=== PATIENT | female | born 1970 | race Caucasian/White ===

== ENCOUNTER 2025-02-22 19:44 | Inpatient (IN) | payer BC ==
[~2025-02-22] VITALS: Ht 162.6 cm; Wt 76.6 kg
[2025-02-22 20:15] VITALS: BP 145/73; PULSE 76; RESP 18; TEMP 97.5; O2SAT 98
[2025-02-22] MEDS ORDERED: loperamide 2mg capsule PO PRN (20:25)
[2025-02-22] MEDS ORDERED: magnesium hydroxide 30ml (MOM) UD suspension PO PRN (20:25)
[2025-02-23] MEDS: haloperidol lactate 5mg/ml inj IM ONE (00:38)
[2025-02-23 07:00] VITALS: RESP 12; O2SAT 95
--- NOTE | 2025-02-23 08:06 | HISTORY AND PHYSICAL ---
History & Physical Providers to CC ~ chief complaint, depression, insomnia, History of Present Illness Reason for Admit\Complaint: As above History of Present Illness This 54-year old (Primary language = Hebrew) Female relatively in good health, except history of hypertension, marijuana use, GERD on medication, bronchial asthma on Singulair, history of hysterectomy, history of left ovarian cyst, insomnia on medication, history of depression, psychiatric disorder, psychotic disorder, presented to the hospital with chief complaint depression insomnia; in addition patient wasadmitted this shift (at 2012) on a 5150 forDTS, [facility]TOfrom [facility] via w[facility]c, accompanied per [facility] staff and security personnel. Per 5150, Pt was demonstrating psychotic features including sikhism delusional thinking, flight of ideas and loose associations. She was making statements about needing to be burned at the stake and vague statements concerning child sacrifice and was unable to articulate a viable plan for safety. No additional complaint or concern. Allergies: Coded Allergies: No Known Allergies (Unverified , 02/22/25) Active prescriptions I reviewed reconciled Home Medications Pending Past Medical History Past Medical History As in HPI Past Surgical History Surgical History Comment As in HPI Past Social History Social History Comment Drug abuse tobacco alcohol use except use of marijuana family good social support Health Maintenance Health Maintenance Noncontributory ROS ROS Constitutional : no fever , no chills, or weakness. No diaphoresis. Allergic/Immunologic, no lymphadenopathy, no hives, no skin eruptions. Eyes, no recent visual changes, no eye pain, no photophobia. Ears, nose, mouth, throat, no sore throat, no nosebleed, no ear pain. Cardiovascular, no palpitations, skipped beats, chest pain, no peripheral edema, Respiratory, no dyspnea, orthopnea, cough, hemoptysis, chest wall pain. Gastrointestinal, no abdominal pain, nausea, vomiting, constipation or diarrhea. : no dysuria, hematuria, pelvic pain, urethral d/c. Endocrine, no polyuria, polydipsia, recent unintentional weight gain or loss. Hematologic/Lymphatic, no petechiae, no enlarged lymph nodes, no bone pain. Integumentary, no rash, no skin lesions, Musculoskeletal, no muscle aches, or pain, no muscle cramps, no recent change in gait Neurological, no dizziness, no headache, no syncope, no paresthesia. Psychiatric, depression, hallucination, delusions, insomnia ROS - in rest is as in HPI. Exam Vitals: Vital Signs Date Time Temp Pulse Resp B/P (MAP) Pulse Ox O2 Delivery O2 Flow Rate FiO2 02/23/25 00:38 16 02/22/25 20:15 97.5 76 145/73 (97) 98 Room Air Vital signs, stable ,afebrile. Pulse Oximetry reflects adequate oxygenation. BMI is 27, weight 73 kg General: well developed, well nourished. Awake , alert, and oriented x4, resting comfortably in the bed, in no acute distress . Skin: Warm, dry, no pallor, no rash or petechiae. HEENT: Atraumatic, normocephalic, EOMI, anicteric sclera B; pink conjunctiva; PERRLA, normal oropharynx, moist oral and nasal mucosa. Tympanic membrane , nose , throat clear. Neck: Trachea midline. Supple, full range of motion, no JVD, bruit , hepatojugular reflex , lymphadenopathy or masses, or other lesions Cardiac: Regular rhythm, regular rate no murmurs, rubs, or gallops. Normal S1 and S2, no S3 noticed. PMI is normal. Respiratory: Equal breath sounds bilaterally, no tachypnea; lungs clear to auscultation bilaterally, no wheezing ,rub or rales, or crackles. Chest wall is symmetric and without deformity. No signs of trauma. Chest wall is nontender. No signs of respiratory distress. Resonance is normal upon percussion bilaterally. Gastrointestinal: Abdomen symmetric, non-distended, soft, non-tender, normal bowel sounds x4 quadrant, normoactive, no hepatosplenomegaly , no masses , no bruit, no flank pain bilaterally. No voluntary guarding, rebound, or rigidity. No tenderness to percussion. No pulsatile masses. Equal femoral pulses. No Sanchez's sign or McBurney point tenderness. Back; no CVA tenderness bilaterally, no deformities. Neck and back are without deformity as well. No tenderness noted on palpation of the spinous processes. Spinous processes are midline. Cervical, thoracic, and lumbar paraspinal muscles are not tender and are without spasm. : Noncontributory Musculoskeletal: Extremities, normal range of motion, non-tender, muscle strength 5/5 x 4. Negative Homans signs bilaterally on lower extremity. Distal pulses full symmetrical, no clubbing, cyanosis , edema. Neurological: Speech is clear, alert, and oriented x 4. No motor or sensory deficit, deep tendon reflexes normal, cerebellar intact. Cranial nerves II-XII intact. Psych: Alert and or appropriate, normal affect. Vascular: Good distal pulses, which are equal x4; capillary refill less than 2 seconds. Lymphatic, no lymphadenopathy. Advance Care Planning Advanced Care plannin - 30 Minutes Additional Plan Assessment/plan Psychotic disorder, depression, insomnia, treatment per Psychiatric team Hypertension, fair control Marijuana user, consulted not to use marijuana patient agrees GERD, on medications stable History of bronchial asthma on Singulair, stable Additional comorbidities, history of left ovarian cyst, hysterectomy Hospitalist team we will follow the patient per hospital protocol Sepsis Screening Reassessment Date: Feb 23, 2025 Date of Service: Feb 23, 2025 Billing Provider: JUDSON JUAREZ MD Common Visit Codes: [id number] INP/OBS CARE(MOD) JUDSON JUAREZ MD Feb 23, 2025 08:06
[2025-02-23 13:14] LABS: CHOL/HDL RATIO 2.6 (0.00-4.99); LDL CHOLESTEROL 77 MG/DL (50-100)
[2025-02-23] MEDS ORDERED: ESTR1PAT93 TD (13:31)
[2025-02-23] MEDS ORDERED: SERT-434 PO (13:31)
[2025-02-23] MEDS ORDERED: MONT-40 PO (13:31)
[2025-02-23] MEDS ORDERED: ATOR40TA72 PO (13:31)
[2025-02-23] MEDS ORDERED: estradiol 0.1mg patch.TDWK TD SCH (14:30)
[2025-02-23 19:00] VITALS: RESP 16
[2025-02-23] MEDS: divalproex 250mg tablet, delayed-release PO SCH (21:03)
--- NOTE | 2025-02-23 22:02 | HISTORY AND PHYSICAL ---
History of Present Illness Admission Diagnosis: Psychosis, MDD History of Present Illness This 54-year old female presented to the ED with danger to self and danger to others after presenting with acute psychotic symptoms. On admission to the floor, she has continued demonstrating psychotic features including rel igious delusional thinking, flight of ideas and loose associations. She was making statements about needing to be burned at the stake and vague statements concerning child sacrifice and was unable to articulate a viable plan for safety. Allergies: Coded Allergies: No Known Allergies (Unverified , 02/22/25) Past Social History Smoking: Non-Smoker Alcohol Use: Rarely Drug Use: Marijuana Lives with: Alone Lives In: Home Occupation: retired Domestic Violence: Neg Personal History Uses Alcohol: Yes ETOH - How Much and Last Used: rarely Uses Recreational Drugs: No Heroin and/or Methadone: No Alcohol Use: Yes Cocaine: No Inhalents: No Amphetamines: No Marijuana Use: Yes Sedatives: No Tranquilizers: No Tobacco Use: No Caffeine Use: Yes Other Substance: No Current Living Situation: House/APT Does Patient Plan to Continue: Yes Patient Lives With: Alone Marital Status: Single Duration: Chcf: Yes Do you Work: No Do You Want to Work?: No Latter-Day Importance to Patient: High Legal Status: Voluntary (5150) Name and Number of Conservator: N/a Mental Status Exam OBSERVATION Appearnace: Disheveled Speech: Tangential, Pressured, Other (screaming,) Eye Contact: Intense Motor Activity: Restless Affect: Labile MOOD Mood: Anxious, Angry, Depressed, Irritable COGNITION Orientation Impairment: None Memory Impairment: None Attention: Normal PERCEPTION Hallucinations: Auditory Other: None THOUGHTS Suicidality: Ideation Homicidality: Aggressive Delusions: Grandiose, Paraniod, Evangelical BEHAVIOR Behavior: Hyperactive, Agitated, Aggressive, Bizarre INSIGHT Insight: Poor Judgment: Poor Assessment/Plan Problems/Diagnosis: (1) Suicidal behavior (2) Psychosis (3) Depression Additional Plan Need for hospitalization: DTS/DTO, unable to contract for safety DX: SI Psychosis Depression Assessment: On assessment, patient brought up by security to unit. Patient was seen screaming and threatening staff requiring an IM medication intervention shortly after being admitted. Patient continues to make anabaptist references and displaying paranoid, delusional thinking. Medications Cont. Sertraline *Added Zyprexa 5mg *Added Depakote 250mg BID Plan: -Continue legal hold - Maintain close obs -Reassess DTS/DTO Length of stay 3-7 days Dispo: Likely home CODING VISIT-PSYCHIATRY Date of Service: Feb 23, 2025 Billing Provider: MIKIE GARCIA NP Psych Common Visit Codes: [id number] INP/OBS CARE (Mod) IMKIE GARCIA NP Feb 23, 2025 22:02
[2025-02-24 07:00] VITALS: RESP 16; O2SAT 97
[2025-02-24] MEDS: OLANZAPINE 5 MG TABLET PO SCH (08:00)
[2025-02-24 20:00] VITALS: BP 121/54; PULSE 66; RESP 16; TEMP 97.1; O2SAT 97
[2025-02-25 07:00] VITALS: BP 102/60; PULSE 63; RESP 16; TEMP 97.5; O2SAT 97
[2025-02-25 13:30] LABS: MEAN PLATELET VOLUME 9.2 FL (7.4-10.4); RED CELL DISTRIBUTION WIDTH 14.3 % (11.5-14.5)
[2025-02-25 13:54] LABS: CREATININE 0.91 MG/DL (0.40-0.90); TOTAL CARBON DIOXIDE 33.3 MMOL/L (24-32); eCRCL 60 ML/MIN; eGFR 64 ML/MIN
[2025-02-25 19:00] VITALS: BP 119/61; PULSE 74; RESP 16; TEMP 97.4; O2SAT 97
[2025-02-25] MEDS ORDERED: albuterol 2.5 MG/3 ML nebule NEB PRN (19:35)
--- NOTE | 2025-02-25 19:38 | PROGRESS NOTE ---
Progress Note Dictate Providers to CC ~ Progress Note: Psychiatric Inpatient Progress Note Subjective Notes (HPI / Interval History) Patient transferred from outside ED on 5150 for acute psychosis with dangerous behaviors. Since admission, patient reports feeling calmer, more peaceful, and supported. She acknowledges experiencing a manic episode and shows partial insight into need for stabilization, though continues to justify prior behaviors. Denies suicidal intent but describes walking into traffic to shock others, endorsing belief she was impervious to harm at the time. Ongoing grandiose, religiously themed delusional beliefs persist, including ritualistic barefoot walking and belief her energy affected her dog. Denies intentional overdose and denies current SI/HI, though remains a poor historian. Reports long-term sertraline use for chronic depression. States trigger for episode was overwhelming grief after a community gathering. Accepting current medications; no refusals reported. Sleep, appetite, and energy subjectively improved compared to presentation. Changes in Signs and Symptoms (since admission) Agitation markedly improved; no longer erratic or aggressive. Mood calmer and more pleasant compared to admission. Insight improved but remains limited. Psychotic and zoroastrian delusional thinking persists, though less behaviorally disruptive. Thought organization improved but remains tangential and circumstantial. Impulsivity and poor judgment improved but not resolved. PTS STATUS AND PROGRESS Patient demonstrates behavioral stabilization with medication, improved engagement, and partial insight. Continues to require inpatient level of care due to persistent psychosis and impaired judgment. Observations / Objective (Staff / MSE) Appearance: Appropriate, calm Hygiene: Adequate Behavior: Cooperative, pleasant Speech: Normal rate and volume Affect: Euthymic, congruent Thought process: Tangential, circumstantial Thought content: Grandiose and zoroastrian delusions Psychomotor activity: No agitation or retardation observed DC Discharge planning deferred; anticipate discharge home once psychosis further stabilizes and legal hold resolved. Assessment Clinical Impression 54-year-old female with history of MDD presenting with first documented manic episode with psychotic features. Currently improved from acute agitation but continues to exhibit delusional thinking and impaired judgment. Medically cleared; no medical etiology identified. Strengths and Weaknesses Strengths include housing stability, financial resources, education, medication acceptance, and emerging insight. Weaknesses include persistent psychosis, poor judgment, impaired reality testing, and limited reliability as historian. Risk Level Moderate to high risk due to recent dangerous behaviors, impaired judgment, and psychosis. Denies current SI/HI but remains at risk for unintentional harm. Plan MEDICATIONS Continue divalproex sodium DR; check level in 7 days Continue olanzapine; plan gradual taper as thought process clears Sertraline currently held THERAPEUTIC INTERVENTIONS Supportive therapy and reality orientation Encourage participation in milieu and groups as tolerated SAFETY Continue inpatient monitoring Maintain structured environment LEGAL STATUS Initiate 5250 (14-day hold) for grave disability and impaired judgment DISPOSITION Continue inpatient stabilization; reassess readiness for voluntary status and discharge planning once psychosis further improves Antibiotic Ordered?: No Objective Vitals Vital Signs Date Time Temp Pulse Resp B/P (MAP) Pulse Ox O2 Delivery O2 Flow Rate FiO2 02/25/25 07:00 97.5 63 16 102/60 (74) 97 Room Air Lab Results: 02/25/25 1316 02/25/25 1316 Problem\Assessment\Plan Problems/Diagnosis: (1) Psychosis (2) Depression Psychiatrist's Progress Note Date of Service: Feb 24, 2025 Time of Evaluation: 12:30 CODING VISIT-PSYCHIATRY Date of Service: Feb 24, 2025 Billing Provider: ALIREZA HERNANDES MSN Psych Common Visit Codes: [id number] INP/OBS CARE(Mod) Problem Qualifiers (1) Psychosis: Qualified Codes: F23 - Brief psychotic disorder (2) Depression: ALIREZA HERNANDES MSN Feb 25, 2025 19:38
--- NOTE | 2025-02-25 19:39 | PROGRESS NOTE- Residence ---
Progress Note - Resident Providers to CC Resident Creating Document: SHAUNA MARIA, BABATUNDE ~ Antibiotic Timeout Antibiotic Ordered?: No Subjective The patient was seen and examined at bedside today. She reported that she uses albuterol inhaler PRN and Advair inhaler once daily at home. Continued budesonide and albuterol nebulizers. She does not have any other medical complaints. Objective Vital Signs Date Time Temp Pulse Resp B/P (MAP) Pulse Ox O2 Delivery O2 Flow Rate FiO2 02/25/25 07:00 97.5 63 16 102/60 (74) 97 Room Air Result Diagram: 02/25/25 1316 02/25/25 1316 General: Awake and Alert, no acute distress. HEENT: Conjunctiva pink, Sclera clear, Mucus Membranes moist. Neck: Supple without masses and tenderness. Resp: Unlabored. Lungs clear to auscultation bilaterally. Heart: Regular Rate and rhythm, normal S1 and S2 without murmur, rub or gallop. Abdomen: Soft and non tender no organomegaly Extremities: No cyanosis,clubbing or edema. Skin: Warm and Dry. Plan Plan Suicidal intention Psychosis Depression Management as per Psychiatry. Asthma, not in exacerbation Allergies Patient takes Advair inhaler once daily and albuterol inhaler PRN at home. Continued budesonide nebulization once daily and albuterol nebulization q.4h PRN. Also continue her home montelukast. Hyperlipidemia Continue home atorvastatin. Menopause Continue estradiol 0.1 mg twice daily. Disposition: Hospitalist team will continue monitoring the patient during the course of her hospital stay. Shauna Maria MD Internal Medicine Resident, PGY-2 The patient was seen, examined and discussed with the attending physician, Dr. Najera. Date of Service: Feb 25, 2025 Billing Provider: RUPINDER NAJERA MD, SOWMYA MANJARI, BABATUNDE Feb 25, 2025 19:39
--- NOTE | 2025-02-25 19:54 | PROGRESS NOTE ---
Progress Note Dictate Providers to CC ~ Progress Note: HPI / Interval History Since last evaluation, patient remains pleasant, calm, cooperative, and talkative. Engagement continues to be appropriate. She reports feeling more rested overall; however, sleep was mildly disrupted overnight due to a subjective increase in energy. She states her thoughts feel clearer and reports she does not feel manic as she did on admission, though acknowledges residual increased energy. Psychotic thinking remains present but less prominent; thoughts continue to be mildly bizarre. Insight has modestly improved, and she demonstrates understanding of the need for medication stabilization and laboratory monitoring prior to discharge discussions. She remains medication compliant with no refusals. Appetite reported as stable. ROS: Constitutional, psychiatric, and neurologic systems reviewed and negative except as noted in HPI. Changes in Signs and Symptoms (since admission) Thought clarity improved compared to admission. Manic symptoms improved but not fully resolved. Energy level decreased overall but remains elevated at night. Psychotic thought content persists but is less disorganized. Sleep improved compared to admission, with mild ongoing disturbance. PTS STATUS AND PROGESS Patient shows continued clinical stabilization with improved insight, sustained medication adherence, and reduced acuity of manic symptoms. Ongoing psychosis and residual increased energy support continued inpatient care. Observations / Objective Appearance: Appropriate, well-groomed Hygiene: Adequate Behavior: Calm, cooperative Speech: Normal rate, mildly verbose Affect: Pleasant, congruent Thought process: Circumstantial, mildly disorganized Thought content: Persistent bizarre and evangelical themes Psychomotor activity: Mildly increased, non-agitated DC Discharge planning pending Depakote level stabilization and further improvement in thought organization. Assessment Clinical Impression Manic episode with psychotic features, improving with mood stabilizer and antipsychotic treatment. Current acuity remains moderate due to persistent psychosis and residual increased energy. Strengths and Weaknesses Strengths include medication compliance, improved insight, cooperation with treatment, stable housing, and financial resources. Weaknesses include ongoing psychotic beliefs, impaired judgment, and incomplete symptom resolution. Risk Level Moderate risk. No current SI/HI expressed. Risk remains related to residual yasmany, psychosis, and impaired reality testing. No violent or elopement behaviors observed on the unit. Plan MEDICATIONS Continue divalproex sodium DR; obtain scheduled serum level Continue olanzapine; reassess need as stabilization progresses THERAPEUTIC INTERVENTIONS Supportive therapy Ongoing psychoeducation regarding illness course and treatment plan SAFETY Maintain inpatient level of care Continue structured milieu and monitoring LEGAL STATUS Continue 5250 hold for grave disability DISPOSITION Continue inpatient stabilization; revisit discharge planning after labs and further symptom improvement Current Medications Medications (Trade) Dose Ordered Sig/Ke Route PRN Reason Start Time Stop Time Status Last Admin Dose Admin Acetaminophen (Tylenol tablet) 650 mg Q4H PRN PO pain 02/22/25 20:25 02/24/25 20:37 650 MG Trazodone HCl (Desyrel tablet) 50 mg HS PRN PO Insomnia 02/22/25 20:25 02/25/25 22:08 50 MG Hydroxyzine HCl (Atarax tablet) 50 mg Q6H PRN PO anxiety 02/22/25 20:25 02/25/25 21:20 50 MG Haloperidol Lactate (Haldol) 5 mg ONCE ONCE IM 02/23/25 00:15 02/23/25 00:18 DC 02/23/25 00:38 5 MG Lorazepam (Ativan inj) 2 mg ONCE ONCE IM 02/23/25 00:15 02/23/25 00:18 DC 02/23/25 00:38 2 MG Olanzapine (Zyprexa 5mg tablet) 5 mg DAILY PO 02/24/25 08:00 02/25/25 08:50 5 MG Divalproex Sodium (Depakote) 250 mg BID@0830,1730 PO 02/23/25 17:30 02/25/25 17:56 250 MG Montelukast Sodium (Singulair tablet) 10 mg DAILY PO 02/24/25 08:00 02/25/25 08:51 10 MG Atorvastatin Calcium (Lipitor tablet) 40 mg DAILY PO 02/24/25 08:00 02/25/25 08:51 40 MG Sertraline HCl (Zoloft tablet) 100 mg DAILY PO 02/24/25 08:00 02/25/25 08:51 100 MG Magnesium Hydroxide (milk of magnesia oral suspension) 30 ml ONCE ONCE PO 02/25/25 19:45 02/25/25 19:50 DC 02/25/25 20:33 30 ML Antibiotic Ordered?: No Objective Vitals Vital Signs Date Time Temp Pulse Resp B/P (MAP) Pulse Ox O2 Delivery O2 Flow Rate FiO2 02/25/25 07:00 97.5 63 16 102/60 (74) 97 Room Air Lab Results: 02/25/25 1316 02/25/25 1316 Problem\Assessment\Plan Problems/Diagnosis: (1) Psychosis (2) Depression Psychiatrist's Progress Note Date of Service: Feb 25, 2025 Time of Evaluation: 10:10 CODING VISIT-PSYCHIATRY Date of Service: Feb 25, 2025 Billing Provider: ALIREZA HERNANDES Psych Common Visit Codes: [id number] INP/OBS CARE(Mod) Problem Qualifiers (1) Psychosis: Qualified Codes: F23 - Brief psychotic disorder (2) Depression: ALIREZA HERNANDES Feb 25, 2025 19:54
[2025-02-25] MEDS: magnesium hydroxide 30ml (MOM) UD suspension PO ONE (20:33)
[2025-02-25] MEDS: budesonide 0.5mg/2ml UD nebule IH SCH (21:40)
[2025-02-25 21:51] VITALS: PULSE 66; RESP 16; O2SAT 99
[2025-02-26 07:15] VITALS: BP 115/66; PULSE 57; RESP 15; TEMP 98.1; O2SAT 97
[2025-02-26 09:55] VITALS: RESP 15; O2SAT 97
--- NOTE | 2025-02-26 11:59 | PROGRESS NOTE ---
Progress Note Dictate Providers to CC ~ Progress Note: HPI / Interval History Since last evaluation, patient remains pleasant, calm, cooperative, and engaged. Per nursing, patient reported feeling prayerful, less heightened, and better overall, and denied psychotic symptoms. On interview, patient reports poor sleep overnight attributed to nasal congestion related to not using her usual Flonase rather than mood or anxiety. She reports feeling well today and describes the day as positive, noting enjoyment from friends visiting yesterday. Energy is reported as low secondary to poor sleep. She states her thoughts feel clearer and less tangential. Insight has improved; she acknowledges having been manic and can appreciate why others viewed her behavior as psychotic. She continues to endorse fixed spiritual and energy?based beliefs related to prior behaviors, including walking into traffic and barefoot walking, and continues to view these actions as necessary to her spiritual experience, though she recognizes they were bizarre. She denies desire to repeat these behaviors but acknowledges uncertainty about future risk. She remains medication compliant and agreeable to ongoing stabilization and lab monitoring. No medication refusals. ROS: Constitutional, psychiatric, and neurologic systems reviewed and negative except as noted in HPI. Changes in Signs and Symptoms (since admission) Thought organization improved and more linear. Manic symptoms significantly reduced. Insight improved but remains incomplete. Delusional beliefs persist but are less behaviorally driven. Energy level decreased compared to admission. Sleep remains intermittently disturbed. PTS STATUS AND PROGESS Patient demonstrates continued stabilization with improved thought clarity, reduced manic intensity, and increased insight. Persistent delusional beliefs and uncertainty regarding future self?harm in pursuit of spiritual experiences continue to support inpatient level of care. Observations / Objective Appearance: Appropriate, well-groomed Hygiene: Adequate Behavior: Calm, cooperative Speech: Normal rate and tone; less sing?songy Affect: Euthymic, congruent Thought process: More linear, mildly circumstantial Thought content: Persistent spiritual and grandiose delusions Psychomotor activity: Normal DC Discharge planning deferred pending further stabilization, hearing outcome, and Depakote level results. Assessment Clinical Impression Manic episode with psychotic features, showing continued improvement in mood, behavior, and thought organization. Psychosis persists at a lower intensity. Current acuity is moderate. Strengths and Weaknesses Strengths include medication adherence, improved insight, cooperation, social support, housing stability, and engagement with care. Weaknesses include persistent delusional beliefs, impaired judgment related to spiritual experiences, and incomplete symptom resolution. Risk Level Moderate risk. No current SI/HI expressed. Ongoing risk relates to impaired reality testing and uncertainty regarding potential self?harm in pursuit of spiritual experiences. No aggressive, violent, or elopement behaviors observed on the unit. Plan MEDICATIONS Continue divalproex sodium DR; obtain scheduled serum level Continue olanzapine; no changes at this time THERAPEUTIC INTERVENTIONS Supportive therapy Continued psychoeducation and reality?based discussion SAFETY Maintain inpatient level of care Continue structured milieu and monitoring LEGAL STATUS [address]; patient has hearing today DISPOSITION Continue inpatient stabilization; reassess after labs, further symptom resolution, and legal determination Current Medications Medications (Trade) Dose Ordered Sig/Ke Route PRN Reason Start Time Stop Time Status Last Admin Dose Admin Acetaminophen (Tylenol tablet) 650 mg Q4H PRN PO pain 02/22/25 20:25 02/24/25 20:37 650 MG Trazodone HCl (Desyrel tablet) 50 mg HS PRN PO Insomnia 02/22/25 20:25 02/26/25 21:13 50 MG Hydroxyzine HCl (Atarax tablet) 50 mg Q6H PRN PO anxiety 02/22/25 20:25 02/26/25 21:13 50 MG Haloperidol Lactate (Haldol) 5 mg ONCE ONCE IM 02/23/25 00:15 02/23/25 00:18 DC 02/23/25 00:38 5 MG Lorazepam (Ativan inj) 2 mg ONCE ONCE IM 02/23/25 00:15 02/23/25 00:18 DC 02/23/25 00:38 2 MG Olanzapine (Zyprexa 5mg tablet) 5 mg DAILY PO 02/24/25 08:00 02/26/25 09:48 5 MG Divalproex Sodium (Depakote) 250 mg BID@0830,1730 PO 02/23/25 17:30 02/26/25 17:14 250 MG Montelukast Sodium (Singulair tablet) 10 mg DAILY PO 02/24/25 08:00 02/26/25 09:48 10 MG Atorvastatin Calcium (Lipitor tablet) 40 mg DAILY PO 02/24/25 08:00 02/26/25 09:48 40 MG Sertraline HCl (Zoloft tablet) 100 mg DAILY PO 02/24/25 08:00 02/26/25 09:48 100 MG Magnesium Hydroxide (milk of magnesia oral suspension) 30 ml ONCE ONCE PO 02/25/25 19:45 02/25/25 19:50 DC 02/25/25 20:33 30 ML Antibiotic Ordered?: No Objective Vitals Vital Signs Date Time Temp Pulse Resp B/P (MAP) Pulse Ox O2 Delivery O2 Flow Rate FiO2 02/26/25 09:55 15 97 Room Air 02/26/25 07:15 98.1 57 115/66 (82) 02/25/25 21:51 0 21 Lab Results: 02/25/25 1316 02/25/25 1316 Problem\Assessment\Plan Problems/Diagnosis: (1) Depression (2) Psychosis Psychiatrist's Progress Note Date of Service: Feb 26, 2025 Time of Evaluation: 11:59 CODING VISIT-PSYCHIATRY Date of Service: Feb 26, 2025 Billing Provider: ALIREZA HERNANDES MSN Psych Common Visit Codes: [id number] INP/OBS CARE(Mod) Problem Qualifiers (1) Depression: (2) Psychosis: Qualified Codes: F23 - Brief psychotic disorder ALIREZA HERNANDES MSN Feb 26, 2025 11:59
[2025-02-26 19:00] VITALS: RESP 18; O2SAT 96
[2025-02-26 19:30] VITALS: BP 104/54; PULSE 71; RESP 18; TEMP 97.9; O2SAT 96
[2025-02-26 21:10] VITALS: PULSE 72; RESP 16; O2SAT 97
[2025-02-27 08:00] VITALS: BP 114/66; PULSE 61; RESP 16; TEMP 97.6; O2SAT 96
[2025-02-27] MEDS: polyethylene glycol 3350 17gm powd pack PO ONE (11:15)
[2025-02-27 15:34] VITALS: PULSE 76; RESP 14; O2SAT 97
--- NOTE | 2025-02-27 18:52 | PROGRESS NOTE- Residence ---
Progress Note - Resident Providers to CC Resident Creating Document: YORDY DAMON, BABATUNDE ~ Antibiotic Timeout Antibiotic Ordered?: No Subjective The patient was seen and examined at bedside today. She reported she had history of asthma however it was controlled and she did not use any inhaler recently denied any chest pain shortness of breaths today Objective Vital Signs Date Time Temp Pulse Resp B/P (MAP) Pulse Ox O2 Delivery O2 Flow Rate FiO2 02/27/25 15:34 76 14 97 Room Air* 0 21 02/27/25 08:00 97.6 114/66 (82) Result Diagram: 02/25/25 1316 02/25/25 1316 General: Awake and Alert, no acute distress. HEENT: Conjunctiva pink, Sclera clear, Mucus Membranes moist. Neck: Supple without masses and tenderness. Resp: Lungs clear to auscultation bilaterally. Heart: Regular Rate and rhythm, normal S1 and S2 Abdomen: Soft and non tender no organomegaly Extremities: No cyanosis,clubbing or edema. Skin: Warm and Dry. Neurological: Speech is clear, alert, and oriented x 4, no gross neurological deficits Plan Plan Suicidal intention Psychosis Depression Management as per Psychiatry. Constipation Is managed by MiraLax daily, Encouraged to drink water and high-fiber diet Asthma, not in exacerbation Allergies Patient takes Advair inhaler once daily and albuterol inhaler PRN at home. Also continue her home montelukast. Hyperlipidemia Continue home atorvastatin. Menopause Continue estradiol 0.1 mg twice daily. Disposition: Hospitalist team will continue monitoring the patient during the course of her hospital stay. Yordy Damon MD Internal Medicine Resident, PGY-3 The patient was seen, examined and discussed with the attending physician, Dr. Najera. Date of Service: Feb 27, 2025 Billing Provider: RUPINDER NAJERA MD, ELAHE, RES Feb 27, 2025 18:52
[2025-02-27 19:00] VITALS: RESP 16; O2SAT 98
[2025-02-27 20:00] VITALS: RESP 18
[2025-02-27] MEDS: polyethylene glycol 3350 17gm powd pack PO SCH (20:33)
[2025-02-27] MEDS: bisacodyl 10mg suppository rectal RC PRN (20:35)
--- NOTE | 2025-02-27 20:35 | PROGRESS NOTE ---
Progress Note Dictate Providers to CC ~ Progress Note: HPI / Interval History Since last evaluation, patient demonstrates continued improvement in thought clarity and organization. She is calm, cooperative, and highly engaged, asking appropriate and focused questions regarding her diagnosis and medication regimen. She is able to remain on topic without tangentiality. Mood is stable; energy is appropriate. She reports feeling well today. Psychotic symptoms continue to improve; however, she maintains fixed spiritual explanations for the episode, describing excessive energy during meditation as causative, while acknowledging the destabilization that followed. Insight has improved; she recognizes the episode as manic and appreciates others concerns, though delusional interpretations persist. She remains medication compliant without refusals. She expresses concern about long?term medication use; treatment goals and need for stabilization were reviewed, and she was receptive. No changes requested to medications. ROS: Constitutional, psychiatric, and neurologic systems reviewed and negative except as noted in HPI. Changes in Signs and Symptoms (since admission) Thought process markedly improved and now linear. Tangentiality resolved. Insight improved but remains partial. Delusional beliefs persist but are less prominent. Mood and behavioral control remain stable. PTS STATUS AND PROGESS Patient shows steady clinical stabilization with significant improvement in thought organization, engagement, and insight. Persistent delusional beliefs and ongoing need for medication monitoring continue to warrant inpatient care. Observations / Objective Appearance: Appropriate, well-groomed Hygiene: Adequate Behavior: Calm, cooperative, engaged Speech: Normal rate, rhythm, and tone Affect: Euthymic, congruent Thought process: Linear, goal-directed Thought content: Residual spiritual delusional beliefs Psychomotor activity: Normal DC Discharge planning remains contingent on sustained stabilization and completion of Depakote lab monitoring. Assessment Clinical Impression Manic episode with psychotic features, continuing to improve with treatment. Current acuity is moderate with residual delusional content but significantly improved organization and insight. Strengths and Weaknesses Strengths include strong engagement, medication adherence, improving insight, ability to reflect on illness, and willingness to participate in treatment planning. Weaknesses include persistent delusional interpretations and concern about long-term medication adherence. Risk Level Moderate risk. No current SI/HI. Ongoing risk related to residual delusional beliefs and prior dangerous behaviors, though judgment and impulse control have improved. No elopement or aggressive behaviors observed. Plan MEDICATIONS Continue divalproex sodium DR; obtain scheduled serum level Continue olanzapine; no changes at this time THERAPEUTIC INTERVENTIONS Supportive therapy Continued psychoeducation regarding diagnosis, treatment course, and outpatient planning SAFETY Maintain inpatient level of care Continue structured milieu and monitoring LEGAL STATUS 5250 hold remains in effect DISPOSITION Continue inpatient stabilization; reassess readiness for discharge following labs and sustained symptom improvement Current Medications Medications (Trade) Dose Ordered Sig/Ke Route PRN Reason Start Time Stop Time Status Last Admin Dose Admin Acetaminophen (Tylenol tablet) 650 mg Q4H PRN PO pain 02/22/25 20:25 12 20:37 650 MG Trazodone HCl (Desyrel tablet) 50 mg HS PRN PO Insomnia 02/22/25 20:25 Hold 02/26/25 21:13 50 MG Hydroxyzine HCl (Atarax tablet) 50 mg Q6H PRN PO anxiety 02/22/25 20:25 Hold 02/26/25 21:13 50 MG Haloperidol Lactate (Haldol) 5 mg ONCE ONCE IM 02/23/25 00:15 02/23/25 00:18 DC 02/23/25 00:38 5 MG Lorazepam (Ativan inj) 2 mg ONCE ONCE IM 02/23/25 00:15 02/23/25 00:18 DC 02/23/25 00:38 2 MG Olanzapine (Zyprexa 5mg tablet) 5 mg DAILY PO 02/24/25 08:00 Hold 02/27/25 08:26 5 MG Divalproex Sodium (Depakote) 250 mg BID@0830,1730 PO 02/23/25 17:30 Hold 02/27/25 17:43 250 MG Montelukast Sodium (Singulair tablet) 10 mg DAILY PO 02/24/25 08:00 02/27/25 08:26 10 MG Atorvastatin Calcium (Lipitor tablet) 40 mg DAILY PO 02/24/25 08:00 02/27/25 08:26 40 MG Sertraline HCl (Zoloft tablet) 100 mg DAILY PO 02/24/25 08:00 Hold 02/27/25 08:26 100 MG Non-Formulary Medication (Patient's Own Medication) 1 unit TuFr TP 02/23/25 15:23 02/27/25 17:44 1 UNIT Magnesium Hydroxide (milk of magnesia oral suspension) 30 ml ONCE ONCE PO 02/25/25 19:45 02/25/25 19:50 DC 02/25/25 20:33 30 ML Polyethylene Glycol (Miralax packet) 17 gm NOW ONCE PO 02/27/25 10:00 02/27/25 10:01 DC 02/27/25 11:15 17 GM Antibiotic Ordered?: No Objective Vitals Vital Signs Date Time Temp Pulse Resp B/P (MAP) Pulse Ox O2 Delivery O2 Flow Rate FiO2 02/27/25 15:34 76 14 97 Room Air* 0 21 02/27/25 08:00 97.6 114/66 (82) Lab Results: 02/25/25 1316 02/25/25 1316 Problem\Assessment\Plan Problems/Diagnosis: (1) Depression (2) Psychosis Psychiatrist's Progress Note Date of Service: Feb 27, 2025 Time of Evaluation: 16:00 CODING VISIT-PSYCHIATRY Date of Service: Feb 27, 2025 Billing Provider: ALIREZA HERNANDES MSN Psych Common Visit Codes: [id number] INP/OBS CARE(Mod) Problem Qualifiers (1) Depression: (2) Psychosis: Qualified Codes: F23 - Brief psychotic disorder ALIREZA HERNANDES MSN Feb 27, 2025 20:35
[2025-02-28 07:10] VITALS: BP 122/67; PULSE 65; RESP 14; TEMP 97.3; O2SAT 97
[2025-02-28 07:47] VITALS: RESP 14; O2SAT 97
[2025-02-28 09:23] VITALS: PULSE 72; RESP 20; O2SAT 98
--- NOTE | 2025-02-28 14:00 | PROGRESS NOTE ---
Progress Note Dictate Providers to CC ~ Progress Note: HPI / Interval History Since last evaluation, patient remains highly engaged, calm, and cooperative. She reports feeling slightly sad today related to concern about her dog experiencing separation anxiety. She otherwise denies depression or anxiety. Mood is stable; energy is appropriate. Thought processes remain clear and organized. She continues to reflect on the episode through a spiritual framework, describing it as emotionally intense and comparable to a psychedelic experience, while acknowledging it was not substance-related. Insight and judgment continue to improve; she demonstrates understanding of her diagnosis and treatment goals and is able to formulate a logical outpatient plan. She remains medication compliant and is open to continuing medications with plans to revisit long-term use in outpatient care. She expresses readiness for discharge. Sleep and appetite are not reported as problematic today. ROS: Constitutional, psychiatric, and neurologic systems reviewed and negative except as noted in HPI. Changes in Signs and Symptoms (since admission) Thought process remains clear and organized. Insight and judgment significantly improved. Mood stable with mild situational sadness. Psychotic symptoms continue to resolve. Engagement and treatment participation markedly improved. PTS STATUS AND PROGESS Patient demonstrates substantial clinical stabilization with sustained improvement in insight, judgment, and thought organization. Residual spiritual interpretations persist without behavioral dyscontrol. Current presentation supports transition planning while awaiting medication level confirmation. Observations / Objective Appearance: Appropriate, well-groomed Hygiene: Good Behavior: Calm, cooperative, caring toward peers Speech: Normal rate, tone, and volume Affect: Euthymic, congruent Thought process: Linear, goal-directed Thought content: Residual spiritual beliefs without active delusions Psychomotor activity: Normal DC Possible discharge home Wednesday pending Depakote level and continued stability. Assessment Clinical Impression Manic episode with psychotic features, now largely resolved. Current acuity is low to moderate with good insight, judgment, and behavioral control. Strengths and Weaknesses Strengths include strong engagement, medication adherence, improved insight, supportive social connections, and ability to plan for outpatient care. Weaknesses include residual spiritual interpretations and need for continued mood stabilization monitoring. Risk Level Low to moderate risk. No SI/HI. No violent or elopement behaviors. Residual risk relates to recent episode history; current judgment and impulse control are intact. Plan MEDICATIONS Continue divalproex sodium DR Obtain Depakote level in AM Continue olanzapine; no changes THERAPEUTIC INTERVENTIONS Supportive therapy Continued psychoeducation and outpatient planning SAFETY Maintain inpatient level of care until labs complete Continue standard monitoring LEGAL STATUS 5250 hold remains in effect DISPOSITION Anticipate discharge home Wednesday if labs are therapeutic and stability is maintained Current Medications Medications (Trade) Dose Ordered Sig/Ke Route PRN Reason Start Time Stop Time Status Last Admin Dose Admin Acetaminophen (Tylenol tablet) 650 mg Q4H PRN PO pain 02/22/25 20:25 02/24/25 20:37 650 MG Trazodone HCl (Desyrel tablet) 50 mg HS PRN PO Insomnia 02/22/25 20:25 Hold 02/28/25 22:43 50 MG Hydroxyzine HCl (Atarax tablet) 50 mg Q6H PRN PO anxiety 02/22/25 20:25 Hold 02/26/25 21:13 50 MG Haloperidol Lactate (Haldol) 5 mg ONCE ONCE IM 02/23/25 00:15 02/23/25 00:18 DC 02/23/25 00:38 5 MG Lorazepam (Ativan inj) 2 mg ONCE ONCE IM 02/23/25 00:15 02/23/25 00:18 DC 02/23/25 00:38 2 MG Olanzapine (Zyprexa 5mg tablet) 5 mg DAILY PO 02/24/25 08:00 02/27/25 08:26 5 MG Divalproex Sodium (Depakote) 250 mg BID@0830,1730 PO 02/23/25 17:30 02/28/25 16:59 250 MG Montelukast Sodium (Singulair tablet) 10 mg DAILY PO 02/24/25 08:00 02/28/25 07:45 10 MG Atorvastatin Calcium (Lipitor tablet) 40 mg DAILY PO 02/24/25 08:00 02/28/25 07:45 40 MG Sertraline HCl (Zoloft tablet) 100 mg DAILY PO 02/24/25 08:00 02/27/25 08:26 100 MG Non-Formulary Medication (Patient's Own Medication) 1 unit TuFr TP 02/23/25 15:23 02/27/25 17:44 1 UNIT Magnesium Hydroxide (milk of magnesia oral suspension) 30 ml ONCE ONCE PO 02/25/25 19:45 02/25/25 19:50 DC 02/25/25 20:33 30 ML Bisacodyl (Dulcolax suppository) 10 mg DAILY PRN RC constipation 02/27/25 10:00 02/27/25 20:35 10 MG Polyethylene Glycol (Miralax packet) 17 gm HS PO 02/27/25 21:00 02/28/25 20:26 17 GM Polyethylene Glycol (Miralax packet) 17 gm NOW ONCE PO 02/27/25 10:00 02/27/25 10:01 DC 02/27/25 11:15 17 GM Trazodone HCl (Desyrel tablet) 50 mg ONCE ONCE PO 02/28/25 20:00 02/28/25 22:40 DC 02/28/25 22:45 50 MG Antibiotic Ordered?: No Objective Vitals Vital Signs Date Time Temp Pulse Resp B/P (MAP) Pulse Ox O2 Delivery O2 Flow Rate FiO2 02/28/25 09:23 72 20 98 Room Air* 0 21 02/28/25 07:10 97.3 122/67 (85) Lab Results: 02/25/25 1316 02/25/25 1316 Problem\Assessment\Plan Problems/Diagnosis: (1) Depression (2) Psychosis Psychiatrist's Progress Note Date of Service: Feb 28, 2025 Time of Evaluation: 15:59 CODING VISIT-PSYCHIATRY Date of Service: Feb 28, 2025 Billing Provider: ALIREZA HERNANDES MSN Psych Common Visit Codes: [id number] INP/OBS CARE(Mod) Problem Qualifiers (1) Depression: (2) Psychosis: Qualified Codes: F23 - Brief psychotic disorder ALIREZA HERNANDES MSN Feb 28, 2025 13:59
[2025-02-28 19:00] VITALS: BP 113/74; PULSE 75; RESP 16; RESP 18; TEMP 97.9; O2SAT 98; O2SAT 99
[2025-02-28 21:04] VITALS: PULSE 68; RESP 16; O2SAT 98
[2025-03-01 08:00] VITALS: BP 120/57; PULSE 59; RESP 16; RESP 18; TEMP 97.5; O2SAT 97; O2SAT 98
[2025-03-01 08:09] VITALS: PULSE 66; RESP 18; O2SAT 96
--- NOTE | 2025-03-01 08:25 | PROGRESS NOTE ---
Progress Note Dictate Providers to CC ~ Progress Note: HPI / Interval History Since last evaluation, patient remains calm, cooperative, and fully engaged in treatment. She reports being a light sleeper and did not sleep well last night, which she states is typical for her baseline. Mood is stable; energy is appropriate. She denies depression, anxiety, or heightened mood symptoms. Thought processes remain clear and organized. Insight and judgment remain good. She asked appropriate questions regarding olanzapine and the overall medication plan, demonstrating understanding and engagement. She remains medication compliant and agreeable to continuing current regimen, with discussion of outpatient tapering. She is receptive to discharge planning and expresses readiness for discharge tomorrow. ROS: Constitutional, psychiatric, and neurologic systems reviewed and negative except as noted in HPI. Changes in Signs and Symptoms (since admission) Thought process remains clear and linear. Mood stable and euthymic. Insight and judgment sustained and appropriate. Psychotic symptoms resolved. Sleep remains light but consistent with baseline. PTS STATUS AND PROGESS Patient demonstrates sustained stabilization with resolution of manic and psychotic symptoms, intact insight and judgment, and consistent engagement in care. She is clinically appropriate for discharge planning following final medication monitoring. Observations / Objective Appearance: Appropriate, well-groomed Hygiene: Good Behavior: Calm, cooperative, attentive Speech: Normal rate, tone, and volume Affect: Euthymic, congruent Thought process: Linear, goal-directed Thought content: No delusions elicited Psychomotor activity: Normal DC Planned discharge home tomorrow pending completion of Depakote level. Assessment Clinical Impression Manic episode with psychotic features, now resolved. Current acuity is low with sustained stabilization. Strengths and Weaknesses Strengths include strong insight, medication adherence, engagement in care, ability to plan outpatient follow?up, and supportive behaviors noted by staff. Weaknesses include recent severe episode requiring continued mood stabilizer management. Risk Level Low risk. No SI/HI. No violent, elopement, or grave disability concerns. Judgment and impulse control intact. Plan MEDICATIONS Continue divalproex sodium ; obtain Depakote level this morning Continue olanzapine inpatient Outpatient recommendation: continue divalproex for 612 months; taper olanzapine over approximately one month under outpatient supervision THERAPEUTIC INTERVENTIONS Supportive therapy Discharge education and outpatient transition planning SAFETY Continue inpatient monitoring until discharge LEGAL STATUS 5250 hold remains in effect through discharge DISPOSITION Discharge home tomorrow if labs are therapeutic and stability maintained Current Medications Laboratory Tests Test 03/01/25 05:33 Valproic Acid (Depakene) Level 18 UG/ML (50-100) Medications (Trade) Dose Ordered Sig/Ke Route PRN Reason Start Time Stop Time Status Last Admin Dose Admin Acetaminophen (Tylenol tablet) 650 mg Q4H PRN PO pain 02/22/25 20:25 02/24/25 20:37 650 MG Trazodone HCl (Desyrel tablet) 50 mg HS PRN PO Insomnia 02/22/25 20:25 Hold 02/28/25 22:43 50 MG Hydroxyzine HCl (Atarax tablet) 50 mg Q6H PRN PO anxiety 02/22/25 20:25 Hold 02/26/25 21:13 50 MG Haloperidol Lactate (Haldol) 5 mg ONCE ONCE IM 02/23/25 00:15 02/23/25 00:18 DC 02/23/25 00:38 5 MG Lorazepam (Ativan inj) 2 mg ONCE ONCE IM 02/23/25 00:15 02/23/25 00:18 DC 02/23/25 00:38 2 MG Olanzapine (Zyprexa 5mg tablet) 5 mg DAILY PO 02/24/25 08:00 03/01/25 07:52 5 MG Divalproex Sodium (Depakote) 250 mg BID@0830,1730 PO 02/23/25 17:30 03/01/25 07:52 250 MG Montelukast Sodium (Singulair tablet) 10 mg DAILY PO 02/24/25 08:00 03/01/25 07:54 10 MG Atorvastatin Calcium (Lipitor tablet) 40 mg DAILY PO 02/24/25 08:00 03/01/25 07:52 40 MG Sertraline HCl (Zoloft tablet) 100 mg DAILY PO 02/24/25 08:00 03/01/25 07:52 100 MG Non-Formulary Medication (Patient's Own Medication) 1 unit TuFr TP 02/23/25 15:23 02/27/25 17:44 1 UNIT Magnesium Hydroxide (milk of magnesia oral suspension) 30 ml ONCE ONCE PO 02/25/25 19:45 02/25/25 19:50 DC 02/25/25 20:33 30 ML Bisacodyl (Dulcolax suppository) 10 mg DAILY PRN RC constipation 02/27/25 10:00 02/27/25 20:35 10 MG Polyethylene Glycol (Miralax packet) 17 gm HS PO 02/27/25 21:00 02/28/25 20:26 17 GM Polyethylene Glycol (Miralax packet) 17 gm NOW ONCE PO 02/27/25 10:00 02/27/25 10:01 DC 02/27/25 11:15 17 GM Trazodone HCl (Desyrel tablet) 50 mg ONCE ONCE PO 02/28/25 20:00 02/28/25 22:40 DC 02/28/25 22:45 50 MG Antibiotic Ordered?: No Objective Vitals Vital Signs Date Time Temp Pulse Resp B/P (MAP) Pulse Ox O2 Delivery O2 Flow Rate FiO2 03/01/25 08:09 66 18 96 Room Air* 0 21 02/28/25 19:00 97.9 113/74 (87) Lab Results: 02/25/25 1316 02/25/25 1316 Problem\Assessment\Plan Problems/Diagnosis: (1) Depression (2) Psychosis Psychiatrist's Progress Note Date of Service: Mar 01, 2025 Time of Evaluation: 10:25 CODING VISIT-PSYCHIATRY Date of Service: Mar 01, 2025 Billing Provider: ALIREZA HERNANDES MSN Psych Common Visit Codes: [id number] INP/OBS CARE(Mod) Problem Qualifiers (1) Depression: (2) Psychosis: Qualified Codes: F23 - Brief psychotic disorder ALIREZA HERNANDES MSN Mar 01, 2025 08:25
--- NOTE | 2025-03-01 18:30 | PROGRESS NOTE ---
Daily Progress Note Providers to CC No new complaint today, resting comfortably in the bed ~ Central Line/PICC still needed: No Astudillo-Non Protocol Astudillo Indications Met/Not Met: F/C Indications Not Met Antibiotic Timeout Antibiotic Ordered?: No MRSA Education MRSA Education Provided to pt: No Subjective As above as Objective Vital Signs Date Time Temp Pulse Resp B/P (MAP) Pulse Ox O2 Delivery O2 Flow Rate FiO2 03/01/25 08:09 66 18 96 Room Air* 0 21 03/01/25 08:00 97.5 120/57 (78) Vital signs, stable ,afebrile. Pulse Oximetry reflects adequate oxygenation. General: well developed, well nourished. Awake , alert, and oriented x4, resting comfortably in the bed, in no acute distress . Skin: Warm, dry, no pallor, no rash or petechiae. HEENT: Atraumatic, normocephalic, EOMI, anicteric sclera B; pink conjunctiva; PERRLA, normal oropharynx, moist oral and nasal mucosa. Tympanic membrane , nose , throat clear. Neck: Trachea midline. Supple, full range of motion, no JVD, bruit , hepatojugular reflex , lymphadenopathy or masses, or other lesions Cardiac: Regular rhythm, regular rate no murmurs, rubs, or gallops. Normal S1 and S2, no S3 noticed. PMI is normal. Respiratory: Equal breath sounds bilaterally, no tachypnea; lungs clear to auscultation bilaterally, no wheezing ,rub or rales, or crackles. Chest wall is symmetric and without deformity. No signs of trauma. Chest wall is nontender. No signs of respiratory distress. Resonance is normal upon percussion bilaterally. Gastrointestinal: Abdomen symmetric, non-distended, soft, non-tender, normal bowel sounds x4 quadrant, normoactive, no hepatosplenomegaly , no masses , no bruit, no flank pain bilaterally. No voluntary guarding, rebound, or rigidity. No tenderness to percussion. No pulsatile masses. Equal femoral pulses. No Sanchez's sign or McBurney point tenderness. Back; no CVA tenderness bilaterally, no deformities. Neck and back are without deformity as well. No tenderness noted on palpation of the spinous processes. Spinous processes are midline. Cervical, thoracic, and lumbar paraspinal muscles are not tender and are without spasm. : normal external genitalia, without lesions, swelling, masses or tenderness. Musculoskeletal: Extremities, normal range of motion, non-tender, muscle strength 5/5 x 4. Negative Homans signs bilaterally on lower extremity. Distal pulses full symmetrical, no clubbing, cyanosis , edema. Neurological: Speech is clear, alert, and oriented x 4. No motor or sensory deficit, deep tendon reflexes normal, cerebellar intact. Cranial nerves II-XII intact. Psych: Alert and or appropriate, normal affect. Vascular: Good distal pulses, which are equal x4; capillary refill less than 2 seconds. Lymphatic, no lymphadenopathy. Result Diagram: 02/25/25 1316 02/25/25 1316 Problem\Assessment\Plan Assessment/plan Psychotic disorder, depression, insomnia, treatment per Psychiatric team Hypertension, fair control Marijuana user, consulted not to use marijuana patient agrees GERD, on medications stable History of bronchial asthma on Singulair, stable Additional comorbidities, history of left ovarian cyst, hysterectomy Hospitalist team we will follow the patient per hospital protocol Date of Service: Mar 01, 2025 Billing Provider: JUDSON JUAREZ MD Common Visit Codes: [id number] INP/OBS CARE(MOD) JUDSON JUAREZ MD Mar 01, 2025 18:30
[2025-03-01 19:00] VITALS: BP 114/60; PULSE 63; RESP 17; TEMP 98.4; O2SAT 96
[2025-03-01] MEDS: mag hydrox/Alum hydrox/simeth 30ml oral suspension PO PRN (23:45)
[2025-03-02 07:00] VITALS: BP 112/59; PULSE 61; RESP 14; RESP 18; TEMP 98.6; O2SAT 97
[2025-03-02 08:58] VITALS: PULSE 84; RESP 16; O2SAT 96
[2025-03-02] MEDS ORDERED: OLAN5TAB75 PO (10:48)
[2025-03-02] MEDS ORDERED: DIVA125C10 PO (10:48)
[2025-03-02] MEDS ORDERED: HYDR-3686 PO (10:48)
[2025-03-02] MEDS ORDERED: TRAZ-251 PO (10:48)
--- NOTE | 2025-03-02 10:55 | DISCHARGE SUMMARY ---
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 Operations\Procedures: none Consultants: Social work Complications: None Condition on DC: Stable 2 or more antipsychotic used: No 2/more antipsychotic addressed: No Does Patient smoke: No Smoking education given.: No New Medications: Divalproex Sodium (Divalproex Sodium) 125 Mg Cap.sprink 250 MG PO BID@0830,1730 for 30 Days, CAP Hydroxyzine Hcl* (Atarax*) 25 Mg Tablet 50 MG PO Q6H PRN for anxiety for 30 Days, TAB Olanzapine (Olanzapine) 5 Mg Tablet 5 MG PO DAILY for 30 Days, TAB Trazodone HCl (Trazodone HCl) 50 Mg Tablet 50 MG PO HS PRN for Insomnia for 30 Days, TAB Continued Medications: Atorvastatin Calcium (Atorvastatin Calcium) 40 Mg Tablet 1 TAB PO DAILY Estradiol (Estradiol) 0.1 Mg/24 Hour Patch.tdsw 1 PATCH TD TuFr Montelukast Sodium (Montelukast Sodium) 10 Mg Tablet 1 TAB PO DAILY Sertraline HCl (Sertraline HCl) 100 Mg Tablet 1 TAB PO DAILY Discharge Summary: PSYCHIATRIC INPATIENT DISCHARGE SUMMARY Admission Diagnosis Psychosis, NOS Discharge Diagnosis Major Depressive Disorder, recurrent, partial remission Brief Psychotic Disorder Complex Post-Traumatic Stress Disorder (CPTSD) Hospital Course Arjun was admitted for acute psychosis with impaired judgment requiring inpatient stabilization. Early in admission, diagnostic clarification was pursued. As symptoms evolved, it became evident that her psychosis was occurring in the context of severe recurrent major depressive disorder and longstanding complex trauma. A central component of this episode involved an intentional confrontation of unresolved trauma within a spiritual practice framework. The patient consistently described her crisis as emerging during emotionally intense spirit ual work focused on releasing trauma?related fear and control. She experienced this as meaningful and distressing rather than substance?induced or volitional. Throughout hospitalization, care emphasized stabilization while respecting and validating the personal and spiritual meaning of her experience, without reinforcing psychotic content. With treatment including divalproex sodium, olanzapine, sertraline, and supportive inpatient care, the patient demonstrated steady improvement. Thought processes became clear and linear, mood stabilized, and psychotic symptoms partially resolved. Insight and judgment improved significantly. She remained medication compliant, highly engaged, and collaborative in treatment and discharge planning. At discharge, she presents well groomed, bright, organized, and future?oriented, with no evidence of active psychosis and appropriate outpatient plans in place. Mental Status at Discharge Appearance: Well groomed Behavior: Calm, cooperative, appropriate Mood: Stable Affect: Bright, congruent Thought process: Linear, goal directed Thought content: No active psychosis Insight/Judgment: Good SI/HI: Denied Discharge Medications 30-day supply fax to [facility] Fax: [phone] Olanzapine 5 mg, 1 tablet PO QHS for psychosis Sertraline 100 mg, 1 tablet PO QAM for depression Divalproex sodium DR (Depakote) 250 mg, 1 tablet PO BID Trazodone 50 mg, 1 tablet PO QHS PRN for sleep Hydroxyzine 50 mg, 1 tablet PO QHS PRN for sleep/anxiety Discharge Plan Patient is discharging home today. Friends will provide transportation. Follow?Up Care Referral placed to [facility] for outpatient psychiatric follow?up Patient requires specialty psychiatric care for recurrent severe MDD with psychotic features and complex PTSD It is clinically important that outpatient care acknowledges and validates the spiritual and trauma?related context of her crisis while continuing evidence?b ased psychiatric treatment Prior outpatient medications were prescribed by PCP; patient has not previously established care with a energy specialist Insurance change in March necessitates transition to a new provider; patient understands and is actively arranging follow?up Outpatient Treatment Recommendations Continue divalproex sodium for 612 months for mood stabilization Gradual taper of olanzapine over approximately one month, to be managed by outpatient psychiatry Continue antidepressant and PRN medications as clinically indicated Risk Assessment at Discharge Low acute risk. Patient denies suicidal or homicidal ideation. Judgment and impulse control are intact. She demonstrates insight into her illness, has meaningful social support, and a clear outpatient treatment plan. Disposition Discharged home in stable condition with outpatient psychiatric follow?up arranged. Discharging Provider: Janice Hernandes NP Psychiatric?Mental Health Nurse Practitioner *Problems/Diagnosis: (1) Depression (2) Psychosis (3) Chronic post-traumatic stress disorder (PTSD) Total Time Spent on D/C: Up to 30 Minutes CODING VISIT-PSYCHIATRY Date of Service: Mar 02, 2025 Billing Provider: JANICE HERNANDES MSN Psych Common Visit Codes: 27188-VWM/OBS DISCH DAY <30min Problem Qualifiers (1) Depression: (2) Psychosis: Qualified Codes: F23 - Brief psychotic disorder JANICE HERNANDES Mar 02, 2025 10:41
== END 2025-03-02 13:51 | disposition home or self-care (01) | DRG 885 ==
LOC: ADULT MH 20:11
PROVIDERS: ADMIT Psychiatry & Neurology Psychiatry; ATTEND Psychiatry & Neurology Psychiatry
PROC: GZHZZZZ Group Psychotherapy (ICD-10-PCS; principal; 2025-02-25)
DX: F33.41 Major depressive disorder, recurrent, in partial remission (principal); F23 Brief psychotic disorder; F12.10 Cannabis abuse, uncomplicated; I10 Essential (primary) hypertension; J45.909 Unspecified asthma, uncomplicated; F41.9 Anxiety disorder, unspecified; F43.10 Post-traumatic stress disorder, unspecified; F51.05 Insomnia due to other mental disorder; K21.9 Gastro-esophageal reflux disease without esophagitis; Z90.710 Acquired absence of both cervix and uterus; Z79.899 Other long term (current) drug therapy
CPT/HCPCS: 36415; 80053; 80061; 80164; 83036; 85025; 87081; 94760; 96372; 99285; J1630; J2060; Q0177